=== PATIENT | male | born 1975 | race Caucasian/White ===

== ENCOUNTER 2021-01-02 16:00 | Emergency (ER) | payer SELFPAY ==
[2021-01-02 17:07] LABS: RED BLOOD COUNT 4.76 M/UL (4.20-5.50); WHITE BLOOD COUNT 5.8 K/UL (4.5-11.0)
[2021-01-02 17:25] LABS: BUN/CREATININE RATIO 10 (0-10)
[2021-01-02] MEDS ORDERED: K-DUR TAB 20 M20 MEQ PO (22:11)
[2021-01-02] MEDS ORDERED: LASIX 40 MG TAB40 MG PO (22:11)
== END 2021-01-02 22:12 | disposition home or self-care (01) ==
LOC: ER1 16:00
PROVIDERS: Physician Assistant
DX: R10.84 Generalized abdominal pain (principal)
CPT/HCPCS: 80053; 81001; 83690; 85025; 99284; Q9967